=== PATIENT | female | born 1950 | race Caucasian/White ===

== ENCOUNTER 2022-08-28 09:46 | Day surgery (SDC) | payer MEDICARE ==
--- NOTE | 2022-08-28 07:19 | P.GSHP ---
History of Present Illness H&P Date: 08/28/22 CHIEF COMPLAINT: Colon screen HISTORY OF PRESENT ILLNESS: The patient is a 72-year-old female who presents for colon screen. Lower endoscopy was offered for further evaluation and management. PAST MEDICAL HISTORY: Please see list. PAST SURGICAL HISTORY: Please see list. MEDICATIONS: Please see list. ALLERGIES: Please see list. SOCIAL HISTORY: No illicit drug use FAMILY HISTORY: No reports of Crohn disease or ulcerative colitis. REVIEW OF ORGAN SYSTEMS: CONSTITUTIONAL: No reports of fevers or chills. PHYSICAL EXAM: VITAL SIGNS: Stable GENERAL: Well-developed pleasant in no acute distress. HEENT: No scleral icterus. Extraocular movements grossly intact. Moist buccal mucosa. NECK: Supple without lymphadenopathy. CHEST: Unlabored respirations. Equal bilateral excursions. CARDIOVASCULAR: Regular rate and rhythm. Distal 2+ pulses. ABDOMEN: Soft, nontender, nondistended. MUSCULOSKELETAL: No clubbing, cyanosis, or edema. ASSESSMENT: 1. Colon screen. PLAN: 1. Recommend proceeding with a lower endoscopy Past Medical History Past Medical History: Hypertension, Thyroid Disorder History of Any Multi-Drug Resistant Organisms: None Reported Past Surgical History: Bariatric Surgery, Cholecystectomy, Tonsillectomy Additional Past Surgical History / Comment(s): gastric bypass surg 20 yrs ago lost approx 60 lbs in last year, Past Anesthesia/Blood Transfusion Reactions: No Reported Reaction Smoking Status: Never smoker Medications and Allergies Home Medications Medication Instructions Recorded Confirmed Type ALPRAZolam [Xanax] 0.5 mg PO BID PRN 08/23/22 08/23/22 History Cholecalciferol [Vitamin D3 (25 1 tab PO DAILY 08/23/22 08/23/22 History Mcg = 1000 Iu)] Cyanocobalamin [Vitamin B-12 1 injection INJ QMONTHLY 08/23/22 08/23/22 History Injection] Ferrous Sulfate [Iron] 325 mg PO DAILY 08/23/22 08/23/22 History Levothyroxine Sodium [Synthroid] 50 mcg PO DAILY 08/23/22 08/23/22 History Potassium Chloride [Potassium 10 meq PO DAILY 08/23/22 08/23/22 History Chloride ER] Simvastatin 40 mg PO HS 08/23/22 08/23/22 History Ubidecarenone [Co Q-10] 1 tab PO DAILY 08/23/22 08/23/22 History amLODIPine BES/OLMESARTAN MED 1 each PO DAILY 08/23/22 08/23/22 History [amLODIPine BES/OLMESARTAN MED 10-40 mg] hydroCHLOROthiazide 25 mg PO DAILY 08/23/22 08/23/22 History Allergies Allergy/AdvReac Type Severity Reaction Status Date / Time celecoxib [From Celebrex] Allergy Rash/Hives Verified 08/23/22 15:59 shellfish derived [Shellfish] Allergy Rash/Hives Verified 08/23/22 15:59 Iodine and Iodide Containing AdvReac Rash/Hives Verified 08/23/22 15:59 Produc
[~2022-08-28 09:46] MED LIST: LACTATED RINGERS 1,000 ML IV SCH; LIDOCAINE 1% (10MG/ML) FOR IV START INTRADERMA PRN
[2022-08-28 10:28] VITALS: TEMP 97.7
[2022-08-28] MEDS ORDERED: PROPOFOL 10 MG/ML 20 ML VIAL IV ONE (11:10)
--- NOTE | 2022-08-28 11:37 | P.PCN ---
Date of Procedure: 08/28/22 Description of Procedure: PREOPERATIVE DIAGNOSIS: Colonoscopy screening POSTOPERATIVE DIAGNOSIS: Colonoscopy screening OPERATION: Colonoscopy to the ileocecal valve and appendiceal orifice, cecum SURGEON: Martha Avalos MD. ANESTHESIA: MAC. INDICATIONS: The patient is an 72-year-old female who prevents a colonoscopy screening. Last colonoscopy 10 years ago. Benefits and risks were described and informed consent was obtained. DESCRIPTION OF PROCEDURE: The patient had undergone Sutab prep. The patient had been brought into the operating room and laid in the left lateral decubitus position. After adequate intravenous sedation, the rectum was examined with 2% lidocaine jelly. External hemorrhoids were encountered. The rectal tone was within normal limits. No lesions were palpated in the rectal vault. An Olympus colonoscope was advanced until the cecum, ileocecal valve and appendiceal orifice were clearly viewed. The prep was poor to fair. No sigmoid diverticulosis was encountered. Moderate retained stool was found limiting evidence of colonic polyps. Retroflexion of the scope demonstrated grade 2 internal hemorrhoids without active bleeding or inflammation. The colon was desufflated. The patient had tolerated the procedure well. Withdrawal time was over 6 minutes. FINDINGS: Aronchick preparation quality scale 3+ (1-5) Internal hemorrhoids, grade 3 External hemorrhoids, grade 3. No arteriovenous malformations. Limited assessment due to poor prep. No focal colitis. RECOMMENDATIONS: Repeat colonoscopy in 5 years, 2026 due to poor prep Plan - Discharge Summary Discharge Rx Participant: No New Discharge Prescriptions: Continue ALPRAZolam [Xanax] 0.5 mg PO BID PRN PRN Reason: Anxiety amLODIPine BES/OLMESARTAN MED [amLODIPine BES/OLMESARTAN MED 10-40 mg] 1 each PO DAILY Ubidecarenone [Co Q-10] 1 tab PO DAILY Potassium Chloride [Potassium Chloride ER] 10 meq PO DAILY Cyanocobalamin [Vitamin B-12 Injection] 1 injection INJ QMONTHLY Cholecalciferol [Vitamin D3 (25 Mcg = 1000 Iu)] 1 tab PO DAILY Levothyroxine Sodium [Synthroid] 50 mcg PO DAILY hydroCHLOROthiazide 25 mg PO DAILY Simvastatin 40 mg PO HS Ferrous Sulfate [Iron] 325 mg PO DAILY Discharge Medication List ALPRAZolam [Xanax] 0.5 mg PO BID PRN 08/23/22 [History] Cholecalciferol [Vitamin D3 (25 Mcg = 1000 Iu)] 1 tab PO DAILY 08/23/22 [History] Cyanocobalamin [Vitamin B-12 Injection] 1 injection INJ QMONTHLY 08/23/22 [History] Ferrous Sulfate [Iron] 325 mg PO DAILY 08/23/22 [History] Levothyroxine Sodium [Synthroid] 50 mcg PO DAILY 08/23/22 [History] Potassium Chloride [Potassium Chloride ER] 10 meq PO DAILY 08/23/22 [History] Simvastatin 40 mg PO HS 08/23/22 [History] Ubidecarenone [Co Q-10] 1 tab PO DAILY 08/23/22 [History] amLODIPine BES/OLMESARTAN MED [amLODIPine BES/OLMESARTAN MED 10-40 mg] 1 each PO DAILY 08/23/22 [History] hydroCHLOROthiazide 25 mg PO DAILY 08/23/22 [History] Follow up Appointment(s)/Referral(s): Martha Avalos MD [STAFF PHYSICIAN] - As Needed Patient Instructions/Handouts: *Sur[facility] - (Anesthesia) Endoscopy Discharge Instructions, Colonoscopy (DC) Activity/Diet/Wound Care/Special Instructions: Repeat colonoscopy in 5 years, 2026 Discharge Disposition: HOME SELF-CARE
[2022-08-28 12:00] VITALS: BP 116/75; PULSE 78; RESP 16
== END 2022-08-28 12:11 | disposition home or self-care (01) ==
LOC: ORWHC2ENDO 09:46
PROVIDERS: ATTEND Surgery Plastic and Reconstructive Surgery
DX: Z12.11 Encounter for screening for malignant neoplasm of colon (principal); K64.2 Third degree hemorrhoids; I10 Essential (primary) hypertension; Z79.899 Other long term (current) drug therapy; Z88.6 Allergy status to analgesic agent; Z88.8 Allergy status to other drugs, medicaments and biological substances; Z90.49 Acquired absence of other specified parts of digestive tract; Z98.84 Bariatric surgery status
CPT/HCPCS: J2704; G0121; 45378